=== PATIENT | female | born 1980 | race Two or more races ===

== ENCOUNTER 2020-10-04 05:37 | Emergency (ER) | payer SELFPAY ==
[2020-10-04 05:41] VITALS: BP 146/85
[2020-10-04] MEDS ORDERED: AMOXICILLIN500 M1 PO (06:08)
[2020-10-04] MEDS ORDERED: ULTRAM50 MG PO (06:08)
== END 2020-10-04 06:16 | disposition home or self-care (01) ==
LOC: D.ER 05:37
DX: K04.7 Periapical abscess without sinus (principal); K03.81 Cracked tooth